=== PATIENT | male | born 2000 | race Caucasian/White ===

== ENCOUNTER 2022-11-04 03:54 | Emergency (ER) | payer BC, MEDICAID ==
[2022-11-04 04:14] VITALS: BP 135/91
--- NOTE | 2022-11-04 04:17 | ERPHSYRPT ---
- History of Present Illness Time Seen by Provider: 11/04/22 03:58 Source: patient Exam Limitations: no limitations Patient Subjective Stated Complaint: Pt reports at approx 2100 on 11/03/22 he started experiencing low back pain with shooting pain down bilat hips when walki ng and occasional tingling sensation down bilat legs when walking. Reports he has a history of pinched nerve. Triage Nursing Assessment: Pt alert and oriented x3. No apparent respiratory distress. Ambulated to ED cot with slow and steady gait. Skin w/p/d. No obvious deformities/discoloration to lower back. Pt denied tenderness to lower back with palpation. Reports pain to be 6/10. Physician History: Back pain. No falls or other trauma. Nontraumatic back pain. Describes as a tightness. Patient has not taken any Tylenol or ibuprofen. Patient has no red flag symptoms for back pain today: No Loss of control of the bowel or bladder. No weakness or numbness in a leg or arm. No foot drop, disturbed gait. No high fever, no IV drug use. No saddle anaesthesia (numbness of the anus, perineum or genitals). No trauma or h/o cancer Allergies/Adverse Reactions: No Known Drug Allergies Allergy (Unverified 11/04/22 04:02) Home Medications: Buspirone HCl 7.5 mg PO BID 11/04/22 [History] Vortioxetine Hydrobromide [Trintellix] 10 mg PO DAILY 11/04/22 [History] Hx Tetanus, Diphtheria Vaccination/Date Given: Yes Hx Influenza Vaccination/Date Given: Yes Hx Pneumococcal Vaccination/Date Given: No Travel Risk - International Travel Have you traveled outside of the country in past 3 weeks: No - Coronavirus Screening Are you exhibiting any of the following symptoms?: No Close contact with a COVID-19 positive Pt in past 14-21 Days: No - Vaccine Status Have you recieved a Covid-19 vaccination: No - Review of Systems Constitutional: No Fever, No Chills Eyes: No Symptoms Ears, Nose, & Throat: No Symptoms Respiratory: No Cough, No Dyspnea Cardiac: No Chest Pain, No Edema, No Syncope Abdominal/Gastrointestinal: No Abdominal Pain, No Nausea, No Vomiting, No Diarrhea Genitourinary Symptoms: No Dysuria Musculoskeletal: Back Pain, No Neck Pain Skin: No Rash Neurological: No Dizziness, No Focal Weakness, No Sensory Changes Psychological: No Symptoms Endocrine: No Symptoms All Other Systems: Reviewed and Negative - Past Medical History Pertinent Past Medical History: Yes Neurological History: Seizures Psycho-Social History: Anxiety, Depression Other Medical History: concussion 2017 - Past Surgical History Past Surgical History: Yes Musculoskeletal: Orthopedic Surgery Other Surgical History: left arm - Social History Smoking Status: Never smoker Exposure to second hand smoke: No Drug Use: none Patient Lives Alone: No - Nursing Vital Signs Nursing Vital Signs: Initial Vital Signs Temperature 97.7 F 11/04/22 04:02 Pulse Rate 103 H 11/04/22 04:02 Respiratory Rate 16 11/04/22 04:02 Blood Pressure 135/91 11/04/22 04:02 O2 Sat by Pulse Oximetry 97 11/04/22 04:02 Pain Scale Pain Intensity [Lower Back] 7 Pain Intensity 7 - Physical Exam General Appearance: no apparent distress, alert Eye Exam: PERRL/EOMI, eyes nml inspection Ears, Nose, Throat Exam: normal ENT inspection, TMs normal, pharynx normal, moist mucous membranes Neck Exam: normal inspection, non-tender, supple, full range of motion Respiratory Exam: normal breath sounds, lungs clear, No respiratory distress Cardiovascular Exam: regular rate/rhythm, normal heart sounds, normal peripheral pulses Gastrointestinal/Abdomen Exam: soft, normal bowel sounds, No tenderness, No mass Back Exam: normal inspection, normal range of motion, other (Very mild nonmidline tenderness to palpation. No step-offs no deformities. No overlying skin changes.), No CVA tenderness, No vertebral tenderness Extremity Exam: normal inspection, normal range of motion, pelvis stable Neurologic Exam: alert, oriented x 3, cooperative, normal mood/affect, nml cerebellar function, nml station & gait, sensation nml, No motor deficits, No sensory deficit Skin Exam: normal color, warm, dry, No rash Lymphatic Exam: No adenopathy SpO2: 97 - Course Nursing assessment & vital signs reviewed: Yes - Progress Progress: improved Progress Note: 11/04/22 04:15 Full normal neurological exam as above. No red flag symptoms for back pain today. Very mild nonmidline tenderness to palpation. Plan for conservative management tonight. We will do Flexeril, steroid Dosepak, lidocaine patches going home. No indication for imaging at this point in time. Patient may follow-up with PCP for continued symptoms. Return here sooner for any new or changing symptoms. 11/04/22 04:16 Counseled pt/family regarding: diagnosis, need for follow-up - Departure Departure Disposition: Home Clinical Impression: Non-traumatic mid back pain Condition: Stable Critical Care Time: No Instructions: Low Back Pain (DC) Prescriptions: Cyclobenzaprine HCl 10 mg [Cyclobenzaprine 10 MG] 10 mg PO TID PRN 7 Days #21 tablet Lidocaine [Lidocaine Pain Relief] 1 each TP DAILY 7 Days #7 patch Methylprednisolone Packet [Medrol Dosepack] 4 mg PO UD #1 packet
[2022-11-04 04:22] VITALS: PULSE 90; O2SAT 98
== END 2022-11-04 04:35 | disposition home or self-care (01) ==
LOC: ED 03:54
DX: M54.6 Pain in thoracic spine (principal); Z79.52 Long term (current) use of systemic steroids; Z79.899 Other long term (current) drug therapy; Z28.310 Unvaccinated for COVID-19
CPT/HCPCS: 99281